=== PATIENT | female | born 1980 | race Caucasian/White ===

== ENCOUNTER → 2018-03-06 | Day surgery (SDC) | payer OTHER ==
[~2018-03-06] VITALS: Ht 172.7 cm; Wt 64.0 kg
[~2018-03-06] MED LIST: BUPIVACAINE HCL PF 0.5% 10 ML VIAL ONE; CETI10CH CHEW; CHLORHEXIDINE GLUCONATE 2 % 1 PACK (2 CLOTHS) TOPICAL PRN; CIPR250T52 PO; CIPROFLOXACIN/DEXT 400 MG/200 ML IV SCH; LACTATED RINGER'S 1000 ML IV PRN; LIDOCAINE HCL 2% 50 ML VIAL ONE; METOPROLOL TARTRATE 25 MG TAB PO PRN; MIDAZOLAM HCL 2 MG/2 ML VIAL ONE; NEOMYCIN/POLYMYXIN 1 ML G.U. IRRIGANT ONE; NORC5TAB PO; POVIDONE IODINE 5% (ANTISEPSIS KIT) 4 APPLICATIONS EACH NARE PRN; SODIUM CHLORID 0.9% 500 ML IV PRN
--- NOTE | 2018-03-06 10:48 | MP ---
cc: Mukul Song MD DATE OF OPERATION: 03/06/2018 PREOPERATIVE DIAGNOSIS: Right middle finger chronic paronychial infection. PROCEDURE: 1. Right middle finger chronic paronychia incision and debridement. 2. Partial nail plate removal, right middle finger. SURGEON: Mukul Song III, MD. DESCRIPTION OF PROCEDURE: The patient was brought to the operating room, placed supine on the operating table. After the correct site and side of surgery were verified by members of each team in the room multiple times including the patient and myself and after adequate IV sedation was achieved, and preoperative time-out was performed to everyone's satisfaction, the right upper extremity was prepped and draped in the traditional sterile surgical fashion. The radial-sided digital block at the metacarpal level was performed for the middle finger using a 50/50 mixture of 2% plain lidocaine and 0.5% Marcaine. The two small fingers from a size 6 sterile glove were placed over the middle finger as a sterile finger tourniquet. The eponychial and paronychial fold were explored and found to have evidence of chronic irritation and infection. A 3 mm paronychial fold incision was made. The radial 1/2 of the fingernail was then gently removed. There was debris and scar tissue on the radial side of the nail bed and the paronychial fold and this was cultured and passed off the field as a specimen. It was then thoroughly debrided down to normal tissue and then scrubbed gently with Betadine for 2 minutes. There were no other abnormal findings or signs of infection. The nail bed appeared completely normal otherwise. The hand and arm were thoroughly cleansed and dried. 5-0 chromic sutures were used in the eponychial fold to close the small incision. One 1/4 inch iodoform packing was then placed underneath the eponychial folds and brought out obviously. The fingertip was then wrapped. The finger tourniquet was removed and the finger became immediately soft, pink and warm and had brisk capillary refill of less than 2 seconds. A circumferential elastic dressing was applied. The patient was awakened from anesthesia and transported to the Postanesthesia Care Unit awake and in stable condition at the end of the case. Sponge, needle and instrument counts were correct at the end of the case as reported by the nurses in the room. Mukul MD ANASTASIA Narayan , 10:29 AM , 10:48 AM
[2018-03-06 11:05] VITALS: BP 117/74; PULSE 72; RESP 16; TEMP 98.2; O2SAT 100
== END | disposition home or self-care (01) ==
LOC: PHSDC 07:47
PROVIDERS: ATTEND Orthopaedic Surgery Hand Surgery
DX: L03.011 Cellulitis of right finger (principal)
CPT/HCPCS: 00400; 10061; 11730; 87015; 87102; 87116; 87206; J0744; J2250; J3010; J7120